=== PATIENT | male | born 1930 | race Caucasian/White ===

== ENCOUNTER 2019-06-07 16:11 | Inpatient (IN) | payer MEDICARE, BC ==
[2019-06-07] MEDS ORDERED: traMADol HCl 50 MG TAB PO PRN (18:48)
[2019-06-07] MEDS: Ascorbic Acid 500 mg Chewable Tablet PO SCH (20:31)
[2019-06-07] MEDS: Tamsulosin HCl 0.4 MG CAP PO SCH (20:31)
[2019-06-07] MEDS: Aspirin 81 mg Enteric Coated Tablet PO SCH (20:32)
[2019-06-07] MEDS: Gabapentin 100 MG CAP PO SCH (20:32)
[2019-06-07] MEDS: Senokot S 8.6-50 MG TAB PO SCH (20:33)
[2019-06-07] MEDS: Midodrine HCl 5 MG TAB PO SCH (20:36)
[2019-06-07] MEDS: Famotidine 20 MG TAB PO SCH (20:45)
--- NOTE | 2019-06-07 21:16 | HP ---
CHIEF COMPLAINT: Need for rehab. HISTORY OF THE PRESENT ILLNESS: Mr. Whelan is an 89-year-old male, with a past medical history of orthostatic hypotension and bradycardia necessitating the placement of pacemaker earlier this year with Dr. Cavazos who suffered a ground level fall at home resulting in a left intertrochanteric femur fracture. He underwent evaluation in the emergency room and had his pacemaker interrogated that did not show any abnormalities. He underwent a TFN nail to the left intertrochanteric femur fracture with Dr. Messer on June 02, 2019. Postoperatively, he had no complications other than some mild sundowning symptoms. He has been transferred to [facility] for a half-way, physical, and occupational therapy. He previously lived alone with his children close by who would check in on him from time to time. He actually made it to the phone and called his son-in-law on the day of the event. He was previously ambulatory at home with quad cane assist that he at times would forget to use or not use due to pride. 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 It was stated that in the emergency department, he had an episode of hypotension and received hydrocortisone for suspected adrenal insufficiency, which improved his blood pressure. He also had acute blood loss anemia that required 1 unit of packed red blood cells. He, since his procedure, has been tolerating his diet and has had good pain control. He had a bowel movement within the last 48 hours and currently has no complaints. PAST MEDICAL HISTORY: 1. History of bradycardia status post pacemaker placement. 2. Benign prostatic hypertrophy. 3. 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 4. Orthostatic hypotension on midodrine, followed by Dr. Cavazos with Cardiology. PAST SURGICAL HISTORY: 1. Left intertrochanteric femur fracture, TFN nail, June [address] Messer. 2. Procedures for squamous cell carcinoma removal and dual chamber pacemaker, March 2019, and cataract surgery. SOCIAL HISTORY: The patient smokes approximately 2 packs per day for over 70 years, but cut down to half a pack a day approximately 10 years ago. No alcohol or illicit drug use. 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 He is . ALLERGIES: NO KNOWN DRUG ALLERGIES. HOME MEDICATIONS: 1. Flomax 0.4 mg at bedtime. 2. Midodrine 10 mg t.i.d. REVIEW OF SYSTEMS: 10-point review of systems negative except for as per HPI and hard of hearing. PHYSICAL EXAMINATION: VITAL SIGNS: Temperature 98.4, heart rate 103, respirations 18, 96% O2 saturation on room air, blood pressure 126/57. GENERAL: Well-developed, well-nourished male, in no acute distress. Alert and oriented x3 with hearing aids in place, wears corrective lenses. HEENT: Normocephalic, atraumatic. Pupils equal, round, reactive to light and accommodation, extraocular muscles intact. Nares are patent without discharge. Tongue protrudes in the midline. NECK: Supple without lymphadenopathy, thyromegaly, JVD, or bruit. HEART: Irregularly irregular with normal rate. No murmurs, clicks, rubs, or gallops. LUNGS: Clear to auscultation with good air entry bilaterally. No crackles or wheezes. No increased work of breathing. Chest with a pacemaker to the left anterior chest wall. ABDOMEN: Positive bowel sounds in all four quadrants. Soft, nontender, nondistended. No masses, guarding, or rebound tenderness. EXTREMITIES: No cyanosis or clubbing. The right lower extremity is without edema. The left lower extremity has trace edema above the knee with diffuse ecchymosis to the medial thigh extending to the scrotal region with some ecchymosis to the lateral thigh with the incision site with dressing that is clean with just a 3-4 mm circular area of bloody drainage, but otherwise intact. No surrounding erythema. NEUROLOGIC: Cranial nerves 2 through 12 are grossly intact with some weakness to the left hip flexor. LABORATORY DATA: White count 10.3 with 74% neutrophils, 19% lymphocytes, hemoglobin 9, hematocrit 26.2, platelet 225. Chemistry; sodium 137, potassium 4.3, chloride 105, bicarb 28, BUN 23, creatinine 1.01, glucose 132, calcium 9.3, phosphorus 3.2, magnesium 2.1. T-bilirubin 0.5. LFTs are normal. Albumin 3.6. ASSESSMENT AND PLAN: 1. This is an 89-year-old male, with past medical history of symptomatic bradycardia status post pacemaker placement and orthostatic hypotension, who suffered a ground level fall and a left intertrochanteric femur fracture. He will be admitted to our half-way unit for physical and occupational therapy. We will have dressing changes per orthopedist and follow up with Dr. Messer in 14 days. Goal will be to return home with family with outpatient PT and OT. We will continue aspirin b.i.d. for deep venous thrombosis prophylaxis. 2. Orthostatic hypotension. The patient will be continued on his midodrine. 3. Bradycardia, s/p pacemaker. 4. Benign prostatic hypertrophy. The patient will be continued on his tamsulosin. 5. Prophylaxis. We will place the patient on Pepcid and apply sequential compression devices. 6. Code status. I discussed this with family and for now they want to keep him at full resuscitation and we will discuss it further with him over the course of his stay. Job ID: [id number] [facility]
[2019-06-07] MEDS: Acetaminophen 500 MG TAB PO SCH (23:17)
[2019-06-08] MEDS: Ibuprofen 600 MG TAB PO PRN (01:21)
[2019-06-08] MEDS: Acetaminophen 500 MG TAB PO SCH ×4 (05:03→23:01)
[2019-06-08] MEDS: Ascorbic Acid 500 mg Chewable Tablet PO SCH ×2 (09:09→21:35)
[2019-06-08] MEDS: Ferrous Sulfate 325 MG TAB PO SCH ×2 (09:09→18:25)
[2019-06-08] MEDS: Famotidine 20 MG TAB PO SCH ×2 (09:09→21:39)
[2019-06-08] MEDS: Aspirin 81 mg Enteric Coated Tablet PO SCH ×2 (09:09→21:39)
[2019-06-08] MEDS: Gabapentin 100 MG CAP PO SCH ×2 (09:09→16:09)
[2019-06-08] MEDS: Senokot S 8.6-50 MG TAB PO SCH ×2 (09:12→21:39)
[2019-06-08] MEDS: Polyethylene Glycol 3350 17 GM Packet PO SCH (09:12)
[2019-06-08] MEDS: Midodrine HCl 5 MG TAB PO SCH ×3 (09:14→21:39)
[2019-06-08] MEDS: Tamsulosin HCl 0.4 MG CAP PO SCH (21:39)
[2019-06-09] MEDS: Acetaminophen 500 MG TAB PO SCH ×4 (06:08→23:28)
[2019-06-09] MEDS: Ferrous Sulfate 325 MG TAB PO SCH ×2 (09:10→16:15)
[2019-06-09] MEDS: Ascorbic Acid 500 mg Chewable Tablet PO SCH ×2 (09:10→21:20)
[2019-06-09] MEDS: Famotidine 20 MG TAB PO SCH ×2 (09:11→21:20)
[2019-06-09] MEDS: Aspirin 81 mg Enteric Coated Tablet PO SCH ×2 (09:11→21:20)
[2019-06-09] MEDS: Midodrine HCl 5 MG TAB PO SCH ×3 (09:17→21:20)
[2019-06-09] MEDS: Senokot S 8.6-50 MG TAB PO SCH ×3 (09:18→21:20)
[2019-06-09] MEDS: Polyethylene Glycol 3350 17 GM Packet PO SCH ×2 (09:19→10:00)
[2019-06-09] MEDS: Tamsulosin HCl 0.4 MG CAP PO SCH (21:20)
[2019-06-10] MEDS: Acetaminophen 500 MG TAB PO SCH ×3 (05:30→18:06)
[2019-06-10] MEDS: Midodrine HCl 5 MG TAB PO SCH ×3 (08:15→20:55)
[2019-06-10] MEDS: Ascorbic Acid 500 mg Chewable Tablet PO SCH ×2 (08:15→20:55)
[2019-06-10] MEDS: Ferrous Sulfate 325 MG TAB PO SCH ×2 (08:15→18:06)
[2019-06-10] MEDS: Senokot S 8.6-50 MG TAB PO SCH ×2 (08:15→20:54)
[2019-06-10] MEDS: Aspirin 81 mg Enteric Coated Tablet PO SCH ×2 (08:15→20:54)
[2019-06-10] MEDS: Ibuprofen 600 MG TAB PO PRN (08:15)
[2019-06-10] MEDS: Famotidine 20 MG TAB PO SCH ×2 (08:15→20:54)
[2019-06-10] MEDS: Polyethylene Glycol 3350 17 GM Packet PO SCH (08:16)
[2019-06-10] MEDS: Mirtazapine 15 MG TAB PO SCH (20:55)
[2019-06-10] MEDS: Tamsulosin HCl 0.4 MG CAP PO SCH (20:55)
[2019-06-11] MEDS: Acetaminophen 500 MG TAB PO SCH ×5 (00:04→23:17)
[2019-06-11] MEDS: Polyethylene Glycol 3350 17 GM Packet PO SCH (08:22)
[2019-06-11] MEDS: Senokot S 8.6-50 MG TAB PO SCH ×2 (08:23→20:46)
[2019-06-11] MEDS: Ferrous Sulfate 325 MG TAB PO SCH ×2 (08:23→17:51)
[2019-06-11] MEDS: Famotidine 20 MG TAB PO SCH ×2 (08:23→20:47)
[2019-06-11] MEDS: Ibuprofen 600 MG TAB PO PRN ×2 (08:23→20:48)
[2019-06-11] MEDS: Midodrine HCl 5 MG TAB PO SCH ×3 (08:23→20:46)
[2019-06-11] MEDS: Aspirin 81 mg Enteric Coated Tablet PO SCH ×2 (08:23→20:47)
[2019-06-11] MEDS: Ascorbic Acid 500 mg Chewable Tablet PO SCH ×2 (08:23→20:47)
[2019-06-11] MEDS: Mirtazapine 15 MG TAB PO SCH (20:47)
[2019-06-11] MEDS: Tamsulosin HCl 0.4 MG CAP PO SCH (20:47)
[2019-06-12 04:36] LABS: Anion Gap 13 mmol/L (10-20); BUN (Urea Nitrogen) 20 mg/dL (8.4-25.7); Calc. Creatinine Clearance 59 mL/min (70-130); Calcium 8.6 mg/dL (7.8-10.44); Carbon Dioxide 24 mmol/L (23-31); Chloride 108 mmol/L (98-107); Estimated GFR-MDRD 79; Glucose 91 mg/dL (83-110); Potassium 4.6 mmol/L (3.5-5.1); Sodium 140 mmol/L (136-145)
[2019-06-12 04:52] LABS: #Basophils 0.1 thou/uL (0.0-0.2); #Eosinphils 0.2 thou/uL (0.0-0.7); #Lymphocytes 1.5 thou/uL (1.20-3.40); #Monocytes 0.8 thou/uL (0.11-0.59); #Neutrophils 5.9 thou/uL (1.40-6.50); %Basophils 0.7 % (0.0-1.0); %Eosinophils 2.8 % (0.0-10.0); %Neutrophils 69.6 % (42.0-75.0); Hemoglobin 9.2 g/dL (14.0-18.0); Mean Corpuscular HGB CONC 32.7 g/dL (32.0-36.0); Mean Corpuscular Hemoglobin 33.5 pg (27.0-31.0); Mean Platelet Volume 6.3 fL (7.4-10.4); Platelet Count 315 thou/uL (130-400); RBC Distribution Width 17.6 % (11.5-14.5); Red Blood Cell (RBC) Count 2.74 mill/uL (4.70-6.10); White Blood Cell (WBC) Count 8.5 thou/uL (4.8-10.8)
[2019-06-12] MEDS: Acetaminophen 500 MG TAB PO SCH ×4 (06:05→23:37)
[2019-06-12] MEDS: Polyethylene Glycol 3350 17 GM Packet PO SCH (08:54)
[2019-06-12] MEDS: Famotidine 20 MG TAB PO SCH ×2 (08:55→20:25)
[2019-06-12] MEDS: Ibuprofen 600 MG TAB PO PRN ×2 (08:55→20:26)
[2019-06-12] MEDS: Midodrine HCl 5 MG TAB PO SCH ×3 (08:55→20:25)
[2019-06-12] MEDS: Aspirin 81 mg Enteric Coated Tablet PO SCH ×2 (08:55→20:26)
[2019-06-12] MEDS: Senokot S 8.6-50 MG TAB PO SCH ×2 (08:55→21:22)
[2019-06-12] MEDS: Ferrous Sulfate 325 MG TAB PO SCH ×2 (08:55→17:10)
[2019-06-12] MEDS: Ascorbic Acid 500 mg Chewable Tablet PO SCH ×2 (08:55→20:26)
[2019-06-12] MEDS: Tamsulosin HCl 0.4 MG CAP PO SCH (20:25)
[2019-06-12] MEDS: Mirtazapine 15 MG TAB PO SCH (20:26)
[2019-06-13] MEDS: Acetaminophen 500 MG TAB PO SCH ×3 (06:26→18:00)
[2019-06-13] MEDS: Midodrine HCl 5 MG TAB PO SCH ×3 (08:23→21:41)
[2019-06-13] MEDS: Senokot S 8.6-50 MG TAB PO SCH ×2 (08:23→21:41)
[2019-06-13] MEDS: Polyethylene Glycol 3350 17 GM Packet PO SCH (08:23)
[2019-06-13] MEDS: Aspirin 81 mg Enteric Coated Tablet PO SCH ×2 (08:24→21:40)
[2019-06-13] MEDS: Famotidine 20 MG TAB PO SCH ×2 (08:24→21:41)
[2019-06-13] MEDS: Ibuprofen 600 MG TAB PO PRN ×2 (08:24→21:41)
[2019-06-13] MEDS: Ascorbic Acid 500 mg Chewable Tablet PO SCH ×2 (08:24→21:41)
[2019-06-13] MEDS: Ferrous Sulfate 325 MG TAB PO SCH ×2 (08:24→18:00)
[2019-06-13] MEDS: Tamsulosin HCl 0.4 MG CAP PO SCH (21:40)
[2019-06-13] MEDS: Mirtazapine 15 MG TAB PO SCH (21:41)
[2019-06-14] MEDS: Acetaminophen 500 MG TAB PO SCH ×4 (00:32→17:42)
[2019-06-14] MEDS: Senokot S 8.6-50 MG TAB PO SCH ×2 (08:49→20:45)
[2019-06-14] MEDS: Midodrine HCl 5 MG TAB PO SCH ×3 (08:50→20:46)
[2019-06-14] MEDS: Ferrous Sulfate 325 MG TAB PO SCH ×2 (08:50→17:42)
[2019-06-14] MEDS: Ascorbic Acid 500 mg Chewable Tablet PO SCH ×2 (08:50→20:45)
[2019-06-14] MEDS: Famotidine 20 MG TAB PO SCH ×2 (08:53→20:45)
[2019-06-14] MEDS: Aspirin 81 mg Enteric Coated Tablet PO SCH ×2 (08:53→20:45)
[2019-06-14] MEDS: Polyethylene Glycol 3350 17 GM Packet PO SCH (08:59)
[2019-06-14] MEDS: Ibuprofen 600 MG TAB PO PRN (20:45)
[2019-06-14] MEDS: Tamsulosin HCl 0.4 MG CAP PO SCH (20:46)
[2019-06-14] MEDS: Mirtazapine 15 MG TAB PO SCH (20:46)
[2019-06-15] MEDS: Acetaminophen 500 MG TAB PO SCH ×4 (02:27→17:47)
[2019-06-15] MEDS: Senokot S 8.6-50 MG TAB PO SCH ×2 (08:42→20:58)
[2019-06-15] MEDS: Polyethylene Glycol 3350 17 GM Packet PO SCH (08:42)
[2019-06-15] MEDS: Midodrine HCl 5 MG TAB PO SCH ×3 (08:43→20:58)
[2019-06-15] MEDS: Aspirin 81 mg Enteric Coated Tablet PO SCH ×2 (08:43→20:59)
[2019-06-15] MEDS: Ferrous Sulfate 325 MG TAB PO SCH ×2 (08:43→17:47)
[2019-06-15] MEDS: Famotidine 20 MG TAB PO SCH ×2 (08:43→20:59)
[2019-06-15] MEDS: Ascorbic Acid 500 mg Chewable Tablet PO SCH ×2 (08:43→20:59)
[2019-06-15] MEDS: Tamsulosin HCl 0.4 MG CAP PO SCH (20:59)
[2019-06-16] MEDS: Acetaminophen 500 MG TAB PO SCH ×5 (00:14→17:21)
[2019-06-16] MEDS: Senokot S 8.6-50 MG TAB PO SCH ×2 (08:30→20:40)
[2019-06-16] MEDS: Ferrous Sulfate 325 MG TAB PO SCH ×2 (08:30→15:28)
[2019-06-16] MEDS: Ascorbic Acid 500 mg Chewable Tablet PO SCH ×2 (08:31→20:40)
[2019-06-16] MEDS: Polyethylene Glycol 3350 17 GM Packet PO SCH (08:31)
[2019-06-16] MEDS: Aspirin 81 mg Enteric Coated Tablet PO SCH ×2 (08:31→20:39)
[2019-06-16] MEDS: Famotidine 20 MG TAB PO SCH ×2 (08:31→20:39)
[2019-06-16] MEDS: Midodrine HCl 5 MG TAB PO SCH ×3 (08:31→20:39)
[2019-06-16] MEDS: Tamsulosin HCl 0.4 MG CAP PO SCH (20:40)
[2019-06-17] MEDS: Acetaminophen 500 MG TAB PO SCH ×4 (00:21→17:35)
[2019-06-17] MEDS: Polyethylene Glycol 3350 17 GM Packet PO SCH (09:35)
[2019-06-17] MEDS: Midodrine HCl 5 MG TAB PO SCH ×3 (09:35→20:08)
[2019-06-17] MEDS: Senokot S 8.6-50 MG TAB PO SCH ×2 (09:35→20:08)
[2019-06-17] MEDS: Ascorbic Acid 500 mg Chewable Tablet PO SCH ×2 (09:36→20:08)
[2019-06-17] MEDS: Famotidine 20 MG TAB PO SCH ×2 (09:36→20:09)
[2019-06-17] MEDS: Aspirin 81 mg Enteric Coated Tablet PO SCH ×2 (09:36→20:08)
[2019-06-17] MEDS: Ferrous Sulfate 325 MG TAB PO SCH ×2 (09:36→17:35)
[2019-06-17] MEDS: Tamsulosin HCl 0.4 MG CAP PO SCH (20:08)
[2019-06-18] MEDS: Acetaminophen 500 MG TAB PO SCH ×5 (00:20→23:43)
[2019-06-18] MEDS: Ascorbic Acid 500 mg Chewable Tablet PO SCH ×2 (08:56→20:59)
[2019-06-18] MEDS: Polyethylene Glycol 3350 17 GM Packet PO SCH (08:56)
[2019-06-18] MEDS: Midodrine HCl 5 MG TAB PO SCH ×3 (08:56→20:58)
[2019-06-18] MEDS: Famotidine 20 MG TAB PO SCH ×2 (08:57→20:59)
[2019-06-18] MEDS: Aspirin 81 mg Enteric Coated Tablet PO SCH ×2 (08:57→20:57)
[2019-06-18] MEDS: Senokot S 8.6-50 MG TAB PO SCH ×2 (08:57→20:59)
[2019-06-18] MEDS: Ferrous Sulfate 325 MG TAB PO SCH ×2 (08:57→17:33)
[2019-06-18] MEDS: Tamsulosin HCl 0.4 MG CAP PO SCH (20:57)
[2019-06-19] MEDS: Acetaminophen 500 MG TAB PO SCH ×3 (05:49→17:24)
[2019-06-19] MEDS: Ascorbic Acid 500 mg Chewable Tablet PO SCH ×2 (08:16→20:55)
[2019-06-19] MEDS: Famotidine 20 MG TAB PO SCH ×2 (08:16→20:55)
[2019-06-19] MEDS: Midodrine HCl 5 MG TAB PO SCH ×3 (08:16→20:54)
[2019-06-19] MEDS: Aspirin 81 mg Enteric Coated Tablet PO SCH ×2 (08:18→20:55)
[2019-06-19] MEDS: Ferrous Sulfate 325 MG TAB PO SCH ×2 (08:18→17:24)
[2019-06-19] MEDS: Polyethylene Glycol 3350 17 GM Packet PO SCH (08:19)
[2019-06-19] MEDS: Senokot S 8.6-50 MG TAB PO SCH ×2 (08:19→20:55)
[2019-06-19] MEDS: Ibuprofen 600 MG TAB PO PRN (20:54)
[2019-06-19] MEDS: Tamsulosin HCl 0.4 MG CAP PO SCH (20:55)
[2019-06-20] MEDS: Acetaminophen 500 MG TAB PO SCH ×4 (00:27→17:12)
[2019-06-20] MEDS: Famotidine 20 MG TAB PO SCH ×2 (08:03→21:21)
[2019-06-20] MEDS: Aspirin 81 mg Enteric Coated Tablet PO SCH ×2 (08:03→21:20)
[2019-06-20] MEDS: Polyethylene Glycol 3350 17 GM Packet PO SCH (08:03)
[2019-06-20] MEDS: Ferrous Sulfate 325 MG TAB PO SCH ×2 (08:03→17:12)
[2019-06-20] MEDS: Ascorbic Acid 500 mg Chewable Tablet PO SCH ×2 (08:03→21:21)
[2019-06-20] MEDS: Midodrine HCl 5 MG TAB PO SCH ×3 (08:03→21:20)
[2019-06-20] MEDS: Senokot S 8.6-50 MG TAB PO SCH ×2 (08:03→21:22)
[2019-06-20] MEDS: Tamsulosin HCl 0.4 MG CAP PO SCH (21:20)
[2019-06-21] MEDS: Acetaminophen 500 MG TAB PO SCH ×5 (01:28→23:57)
[2019-06-21] MEDS: Senokot S 8.6-50 MG TAB PO SCH ×2 (08:48→20:40)
[2019-06-21] MEDS: Midodrine HCl 5 MG TAB PO SCH ×3 (08:49→20:40)
[2019-06-21] MEDS: Aspirin 81 mg Enteric Coated Tablet PO SCH ×2 (08:49→20:40)
[2019-06-21] MEDS: Polyethylene Glycol 3350 17 GM Packet PO SCH (08:49)
[2019-06-21] MEDS: Ferrous Sulfate 325 MG TAB PO SCH ×2 (08:49→17:48)
[2019-06-21] MEDS: Famotidine 20 MG TAB PO SCH ×2 (08:49→20:40)
[2019-06-21] MEDS: Ascorbic Acid 500 mg Chewable Tablet PO SCH ×2 (08:50→20:40)
[2019-06-21] MEDS: Tamsulosin HCl 0.4 MG CAP PO SCH (20:40)
[2019-06-22] MEDS: Acetaminophen 500 MG TAB PO SCH ×4 (05:04→23:17)
[2019-06-22] MEDS: Aspirin 81 mg Enteric Coated Tablet PO SCH ×2 (08:50→20:19)
[2019-06-22] MEDS: Midodrine HCl 5 MG TAB PO SCH ×3 (08:50→20:19)
[2019-06-22] MEDS: Senokot S 8.6-50 MG TAB PO SCH ×2 (08:50→20:18)
[2019-06-22] MEDS: Ferrous Sulfate 325 MG TAB PO SCH ×2 (08:51→17:14)
[2019-06-22] MEDS: Famotidine 20 MG TAB PO SCH ×2 (08:51→20:19)
[2019-06-22] MEDS: Ascorbic Acid 500 mg Chewable Tablet PO SCH ×2 (08:51→20:19)
[2019-06-22] MEDS: Polyethylene Glycol 3350 17 GM Packet PO SCH (08:51)
[2019-06-22] MEDS: Tamsulosin HCl 0.4 MG CAP PO SCH (20:19)
[2019-06-23] MEDS: Acetaminophen 500 MG TAB PO SCH ×3 (05:18→17:57)
[2019-06-23] MEDS: Senokot S 8.6-50 MG TAB PO SCH ×2 (08:31→20:36)
[2019-06-23] MEDS: Midodrine HCl 5 MG TAB PO SCH ×3 (08:31→20:35)
[2019-06-23] MEDS: Ascorbic Acid 500 mg Chewable Tablet PO SCH ×2 (08:32→20:36)
[2019-06-23] MEDS: Polyethylene Glycol 3350 17 GM Packet PO SCH (08:32)
[2019-06-23] MEDS: Famotidine 20 MG TAB PO SCH ×2 (08:32→20:35)
[2019-06-23] MEDS: Aspirin 81 mg Enteric Coated Tablet PO SCH ×2 (08:32→20:35)
[2019-06-23] MEDS: Ferrous Sulfate 325 MG TAB PO SCH ×2 (08:32→17:57)
[2019-06-23] MEDS: Ibuprofen 600 MG TAB PO PRN (20:35)
[2019-06-23] MEDS: Tamsulosin HCl 0.4 MG CAP PO SCH (20:36)
[2019-06-24] MEDS: Acetaminophen 500 MG TAB PO SCH ×4 (00:08→17:33)
[2019-06-24] MEDS: Polyethylene Glycol 3350 17 GM Packet PO SCH (08:28)
[2019-06-24] MEDS: Famotidine 20 MG TAB PO SCH ×2 (08:29→20:55)
[2019-06-24] MEDS: Ferrous Sulfate 325 MG TAB PO SCH ×2 (08:29→17:33)
[2019-06-24] MEDS: Senokot S 8.6-50 MG TAB PO SCH ×2 (08:29→20:56)
[2019-06-24] MEDS: Midodrine HCl 5 MG TAB PO SCH ×3 (08:30→20:55)
[2019-06-24] MEDS: Ascorbic Acid 500 mg Chewable Tablet PO SCH ×2 (08:30→20:55)
[2019-06-24] MEDS: Aspirin 81 mg Enteric Coated Tablet PO SCH ×2 (08:30→20:55)
[2019-06-24] MEDS: Tamsulosin HCl 0.4 MG CAP PO SCH (20:55)
[2019-06-24] MEDS: Ibuprofen 600 MG TAB PO PRN (20:55)
[2019-06-25] MEDS: Acetaminophen 500 MG TAB PO SCH ×5 (00:32→23:35)
[2019-06-25] MEDS: Midodrine HCl 5 MG TAB PO SCH ×3 (08:51→21:34)
[2019-06-25] MEDS: Famotidine 20 MG TAB PO SCH ×2 (08:51→21:35)
[2019-06-25] MEDS: Senokot S 8.6-50 MG TAB PO SCH ×2 (08:52→21:35)
[2019-06-25] MEDS: Polyethylene Glycol 3350 17 GM Packet PO SCH (08:52)
[2019-06-25] MEDS: Ferrous Sulfate 325 MG TAB PO SCH ×2 (08:52→17:35)
[2019-06-25] MEDS: Ascorbic Acid 500 mg Chewable Tablet PO SCH ×2 (08:52→21:35)
[2019-06-25] MEDS: Aspirin 81 mg Enteric Coated Tablet PO SCH ×2 (08:52→21:34)
[2019-06-25] MEDS: Tamsulosin HCl 0.4 MG CAP PO SCH (21:34)
[2019-06-25] MEDS: Ibuprofen 600 MG TAB PO PRN (21:34)
[2019-06-26 04:29] LABS: Anion Gap 12 mmol/L (10-20); BUN (Urea Nitrogen) 12 mg/dL (8.4-25.7); Calc. Creatinine Clearance 0 mL/min (70-130); Calcium 8.7 mg/dL (7.8-10.44); Carbon Dioxide 23 mmol/L (23-31); Chloride 103 mmol/L (98-107); Estimated GFR-MDRD Greater than 90; Glucose 96 mg/dL (83-110); Potassium 3.9 mmol/L (3.5-5.1); Sodium 134 mmol/L (136-145)
[2019-06-26 05:00] LABS: Thyroid Stimulating Hormone 1.9149 uIU/mL (0.35-4.94)
[2019-06-26] MEDS: Acetaminophen 500 MG TAB PO SCH ×5 (05:22→22:59)
[2019-06-26 05:40] LABS: #Basophils 0.1 thou/uL (0.0-0.2); #Eosinphils 0.1 thou/uL (0.0-0.7); #Monocytes 0.6 thou/uL (0.11-0.59); #Neutrophils 3.9 thou/uL (1.40-6.50); %Basophils 1.1 % (0.0-1.0); %Eosinophils 2.1 % (0.0-10.0); %Lymphocytes 17.2 % (21.0-51.0); %Monocytes 10.7 % (0.0-10.0); %Neutrophils 68.9 % (42.0-75.0); Anisocytosis SLIGHT = 6-15 cells (100X) (0-5/hpf); Hemoglobin 9.6 g/dL (14.0-18.0); MDiff Complete? YES; Macrocytosis SLIGHT = 6-15 cells (100X) (0-5/hpf); Mean Corpuscular HGB CONC 31.8 g/dL (32.0-36.0); Mean Corpuscular Hemoglobin 33.3 pg (27.0-31.0); Mean Platelet Volume 6.8 fL (7.4-10.4); Ovalocytes SLIGHT = 2-5 cells (100X) (0-1/hpf); Platelet Count 211 thou/uL (130-400); Platelet Morphology Comment Appears Adequate; RBC Distribution Width 15.6 % (11.5-14.5); Red Blood Cell (RBC) Count 2.88 mill/uL (4.70-6.10); Rouleaux Formation SLIGHT = 1-5 cells (100X) (None Seen); White Blood Cell (WBC) Count 5.7 thou/uL (4.8-10.8)
[2019-06-26] MEDS: Midodrine HCl 5 MG TAB PO SCH ×3 (08:15→22:56)
[2019-06-26] MEDS: Polyethylene Glycol 3350 17 GM Packet PO SCH (08:16)
[2019-06-26] MEDS: Aspirin 81 mg Enteric Coated Tablet PO SCH ×2 (08:16→22:56)
[2019-06-26] MEDS: Senokot S 8.6-50 MG TAB PO SCH ×2 (08:16→22:57)
[2019-06-26] MEDS: Ascorbic Acid 500 mg Chewable Tablet PO SCH ×2 (08:16→22:57)
[2019-06-26] MEDS: Ferrous Sulfate 325 MG TAB PO SCH ×2 (08:16→17:57)
[2019-06-26] MEDS: Famotidine 20 MG TAB PO SCH ×2 (08:16→22:56)
[2019-06-26] MEDS ORDERED: Furosemide 40 MG TAB PO SCH (15:15)
--- NOTE | 2019-06-26 17:29 | RAD ---
CHEST TWO VIEWS: Date: 06-26-2019 Comparison: 06-01-19 FINDINGS: Small bilateral pleural effusions have occurred in the interval. There is a little haziness in the ty ng bases, but it seems to mostly referable to the fluid and perhaps some minimal atelectasis. No sanjay r lobar infiltrate was seen. The lungs are hyperexpanded as usual. The cardiac size is stable. There is no congestion of the upper lobe vessels to speak of. The cardiac pacer remains in place. Arteriosc lerotic changes seen in the aorta. IMPRESSION: Interval development of small bilateral pleural effusions. POS: HOME
[2019-06-26 17:41] LABS: Bilirubin Negative (Negative); Blood, Urine Negative (Negative); Clarity Clear (Clear); Glucose, Urine (Dipstick) Negative (Negative); Leukocyte Negative (Negative); Nitrite Negative (Negative); Protein, Urine (Dipstick) Negative (Neg-Trace); Urobilinogen 0.2 mg/dL (Less than 2)
[2019-06-26 17:42] LABS: Urine Culture Reflex No No
[2019-06-26 17:48] LABS: Bacteria/HPF None Seen HPF (None Seen); Broad Cast None Seen LPF (None Seen); Calcium Oxalate Crystals None Seen HPF (None Seen); Cellular Cast None Seen LPF (None Seen); Crystals/HPF None Seen HPF (Negative); Epithelial Cast None Seen LPF (None Seen); Fatty Cast None Seen LPF (None Seen); Other Casts None Seen LPF (None Seen); Other Casts/LPF None Seen LPF (0-3 Hyaline); Oval Fat Bodies/HPF None Seen HPF (None Seen); RBC/HPF 0-3 HPF (0-3); Red Blood Cell Cast None Seen LPF (None Seen); Renal Epithelial None Seen HPF (None Seen); Sperm/HPF None Seen HPF (None Seen); Squamous Epithelial None Seen HPF (0-3); Transitional Epithelial None Seen HPF (None Seen); Trichomonas/HPF None Seen HPF (None Seen); Triple Phosphate Crystal None Seen HPF (None Seen); Unclassified Crystals None Seen HPF (None Seen); WBC/HPF None Seen HPF (0-3); Waxy Cast None Seen LPF (None Seen); White Blood Cell Cast None Seen LPF (None Seen); Yeast-Budding None Seen HPF (None Seen); Yeast-Hyphae None Seen HPF (None Seen)
[2019-06-26] MEDS: Tamsulosin HCl 0.4 MG CAP PO SCH (22:56)
[2019-06-27] MEDS: Acetaminophen 500 MG TAB PO SCH ×2 (06:44→18:10)
[2019-06-27] MEDS: Senokot S 8.6-50 MG TAB PO SCH ×2 (09:20→21:57)
[2019-06-27] MEDS: Midodrine HCl 5 MG TAB PO SCH ×3 (09:20→21:58)
[2019-06-27] MEDS: Famotidine 20 MG TAB PO SCH ×2 (09:21→21:57)
[2019-06-27] MEDS: Ferrous Sulfate 325 MG TAB PO SCH ×2 (09:21→18:00)
[2019-06-27] MEDS: Aspirin 81 mg Enteric Coated Tablet PO SCH ×2 (10:20→21:57)
[2019-06-27] MEDS: Ascorbic Acid 500 mg Chewable Tablet PO SCH ×2 (10:21→21:58)
[2019-06-27] MEDS: Polyethylene Glycol 3350 17 GM Packet PO SCH (10:21)
--- NOTE | 2019-06-27 19:26 | ULT ---
LEFT LOWER EXTREMITY VENOUS ULTRASOUND: 06/27/19 Color duplex Doppler ultrasonography of the left lower extremity was performed. No echogenic clot was seen. All deep veins were freely compressible from groin to ankle. There was normal Doppler response to augmentation maneuvers. IMPRESSION: No evidence of DVT. POS: HOME
[2019-06-27] MEDS: Tamsulosin HCl 0.4 MG CAP PO SCH (21:57)
[2019-06-28] MEDS: Acetaminophen 500 MG TAB PO SCH ×4 (00:18→17:50)
[2019-06-28] MEDS: Ferrous Sulfate 325 MG TAB PO SCH ×2 (08:45→17:50)
[2019-06-28] MEDS: Midodrine HCl 5 MG TAB PO SCH ×3 (09:02→21:15)
[2019-06-28] MEDS: Aspirin 81 mg Enteric Coated Tablet PO SCH ×2 (09:03→21:14)
[2019-06-28] MEDS: Ascorbic Acid 500 mg Chewable Tablet PO SCH ×2 (09:03→21:15)
[2019-06-28] MEDS: Senokot S 8.6-50 MG TAB PO SCH ×2 (09:05→21:15)
[2019-06-28] MEDS: Polyethylene Glycol 3350 17 GM Packet PO SCH (09:06)
[2019-06-28] MEDS: Famotidine 20 MG TAB PO SCH ×2 (09:07→21:14)
[2019-06-28 14:45] VITALS: BMI 20.7
[2019-06-28] MEDS: Tamsulosin HCl 0.4 MG CAP PO SCH (21:15)
[2019-06-29] MEDS: Acetaminophen 500 MG TAB PO SCH ×4 (01:01→18:03)
[2019-06-29] MEDS: Ferrous Sulfate 325 MG TAB PO SCH ×2 (08:41→16:32)
[2019-06-29] MEDS: Aspirin 81 mg Enteric Coated Tablet PO SCH ×2 (08:41→20:37)
[2019-06-29] MEDS: Senokot S 8.6-50 MG TAB PO SCH ×2 (08:41→20:36)
[2019-06-29] MEDS: Midodrine HCl 5 MG TAB PO SCH ×3 (08:42→20:36)
[2019-06-29] MEDS: Famotidine 20 MG TAB PO SCH ×2 (08:42→20:36)
[2019-06-29] MEDS: Ascorbic Acid 500 mg Chewable Tablet PO SCH ×2 (08:42→20:37)
[2019-06-29] MEDS: Polyethylene Glycol 3350 17 GM Packet PO SCH (08:42)
[2019-06-29] MEDS: Tamsulosin HCl 0.4 MG CAP PO SCH (20:37)
[2019-06-30] MEDS: Acetaminophen 500 MG TAB PO SCH ×4 (01:07→18:26)
[2019-06-30] MEDS: Ferrous Sulfate 325 MG TAB PO SCH ×2 (09:00→17:26)
[2019-06-30] MEDS: Senokot S 8.6-50 MG TAB PO SCH ×2 (09:00→20:40)
[2019-06-30] MEDS: Midodrine HCl 5 MG TAB PO SCH ×3 (09:10→20:39)
[2019-06-30] MEDS: Ascorbic Acid 500 mg Chewable Tablet PO SCH ×2 (09:11→20:39)
[2019-06-30] MEDS: Polyethylene Glycol 3350 17 GM Packet PO SCH (09:33)
[2019-06-30] MEDS: Ibuprofen 600 MG TAB PO PRN (10:08)
[2019-06-30] MEDS: Aspirin 81 mg Enteric Coated Tablet PO SCH ×2 (10:11→20:39)
[2019-06-30] MEDS: Famotidine 20 MG TAB PO SCH ×2 (10:12→20:39)
[2019-06-30] MEDS: Tamsulosin HCl 0.4 MG CAP PO SCH (20:39)
[2019-07-01] MEDS: Acetaminophen 500 MG TAB PO SCH ×4 (00:03→18:01)
[2019-07-01] MEDS: Senokot S 8.6-50 MG TAB PO SCH ×2 (09:35→20:49)
[2019-07-01] MEDS: Ascorbic Acid 500 mg Chewable Tablet PO SCH ×2 (09:35→20:48)
[2019-07-01] MEDS: Aspirin 81 mg Enteric Coated Tablet PO SCH ×2 (09:36→20:48)
[2019-07-01] MEDS: Famotidine 20 MG TAB PO SCH ×2 (09:36→20:48)
[2019-07-01] MEDS: Midodrine HCl 5 MG TAB PO SCH ×3 (09:36→20:48)
[2019-07-01] MEDS: Ferrous Sulfate 325 MG TAB PO SCH ×2 (09:36→18:01)
[2019-07-01] MEDS: Polyethylene Glycol 3350 17 GM Packet PO SCH (09:36)
[2019-07-01] MEDS: Tamsulosin HCl 0.4 MG CAP PO SCH (20:48)
[2019-07-02] MEDS: Acetaminophen 500 MG TAB PO SCH ×5 (01:46→23:14)
[2019-07-02] MEDS: Senokot S 8.6-50 MG TAB PO SCH ×2 (09:17→20:33)
[2019-07-02] MEDS: Polyethylene Glycol 3350 17 GM Packet PO SCH (09:17)
[2019-07-02] MEDS: Aspirin 81 mg Enteric Coated Tablet PO SCH ×2 (09:18→20:34)
[2019-07-02] MEDS: Midodrine HCl 5 MG TAB PO SCH ×3 (09:18→20:34)
[2019-07-02] MEDS: Ascorbic Acid 500 mg Chewable Tablet PO SCH ×2 (09:18→20:33)
[2019-07-02] MEDS: Ferrous Sulfate 325 MG TAB PO SCH ×2 (09:18→17:45)
[2019-07-02] MEDS: Famotidine 20 MG TAB PO SCH ×2 (09:18→20:33)
[2019-07-02] MEDS: Tamsulosin HCl 0.4 MG CAP PO SCH (20:34)
[2019-07-03] MEDS: Acetaminophen 500 MG TAB PO SCH ×3 (05:26→17:48)
[2019-07-03] MEDS: Ferrous Sulfate 325 MG TAB PO SCH ×2 (08:44→17:48)
[2019-07-03] MEDS: Midodrine HCl 5 MG TAB PO SCH ×3 (08:44→21:21)
[2019-07-03] MEDS: Famotidine 20 MG TAB PO SCH ×2 (08:44→21:21)
[2019-07-03] MEDS: Aspirin 81 mg Enteric Coated Tablet PO SCH ×2 (08:44→21:21)
[2019-07-03] MEDS: Ascorbic Acid 500 mg Chewable Tablet PO SCH ×2 (08:45→21:21)
[2019-07-03] MEDS: Polyethylene Glycol 3350 17 GM Packet PO SCH (08:46)
[2019-07-03] MEDS: Senokot S 8.6-50 MG TAB PO SCH ×2 (12:41→21:22)
[2019-07-03] MEDS: Tamsulosin HCl 0.4 MG CAP PO SCH (21:21)
[2019-07-04] MEDS: Acetaminophen 500 MG TAB PO SCH ×4 (03:15→16:16)
[2019-07-04] MEDS: Polyethylene Glycol 3350 17 GM Packet PO SCH (08:21)
[2019-07-04] MEDS: Midodrine HCl 5 MG TAB PO SCH ×2 (08:21→14:39)
[2019-07-04] MEDS: Famotidine 20 MG TAB PO SCH (08:22)
[2019-07-04] MEDS: Ascorbic Acid 500 mg Chewable Tablet PO SCH (08:22)
[2019-07-04] MEDS: Senokot S 8.6-50 MG TAB PO SCH ×2 (08:22→09:19)
[2019-07-04] MEDS: Aspirin 81 mg Enteric Coated Tablet PO SCH (08:22)
[2019-07-04] MEDS: Ferrous Sulfate 325 MG TAB PO SCH ×2 (08:22→16:16)
[2019-07-04] MEDS: Ibuprofen 600 MG TAB PO PRN (09:20)
--- NOTE | 2019-07-04 16:51 | RAD ---
LEFT HIP THREE VIEWS: 07/04/19 The patient has had a recent ORIF of a femoral neck fracture. Comparison is made with the 06/02/19 in traoperative films. On today's view, the tip of the compression screw appears to protrude beyond the edge of the femoral head in two different views. There is callus forming around the original fracture site. The lesser tr ochanter is ununited as would be expected. The adjacent pubic ring appears intact. IMPRESSION: Tip of compression screw appears to be superior to the limits of the femoral head. I would recommend reconsulting with the orthopedic surgeon to review and assess if anything else need be done. Code T POS: HOME
[2019-07-04 17:21] VITALS: BP 159/77; TEMP 98.8
--- NOTE | 2019-07-05 03:04 | DIS ---
DATE OF ADMISSION: 06/07/2019 DATE OF DISCHARGE: 07/04/2019 ADMISSION DIAGNOSES: 1. Left intertrochanteric femur fracture, status post open reduction and internal fixation. 2. Ground level fall. 3. Orthostatic hypotension. 4. Symptomatic bradycardia, status post pacemaker placement. 5. Benign prostatic hypertrophy. DISCHARGE DIAGNOSES: 1. Left intertrochanteric femur fracture, status post open reduction and internal fixation. 2. Ground level fall. 3. Orthostatic hypotension. 4. Symptomatic bradycardia, status post pacemaker placement. 5. Benign prostatic hypertrophy. 6. Interruption of the open reduction and internal fixation, status post ground level fall at facility. PROCEDURES: 1. Chest x-ray, June 26, 2019. Interval development of small bilateral pleural effusions. 2. Vascular ultrasound, June 27, left lower extremity. No evidence of DVT. 3. Hip x-ray, date of transfer, July 04 showing tibia compression screw appearing to be superior to the limits of femoral head. PENITENTIARY COURSE: Mr. Whelan is an 89-year-old male, who was admitted on June 07, status post ORIF of the left femur, status post ground level fall with fracture. The patient was assessed and treated with Physical and Occupational Therapy, fall precautions, and was ambulating in the [place] with walker and standby assist. He had a few setbacks during his half-way course. Initially, he had decreased intake and appetite, and mirtazapine was started after discussing benefits vs. risks with family. However, after a couple of days of some weight gain, he was having some lethargy in the morning, so this medication was discontinued at family request. The a.m. lethargy resolved and his appetite improved. On June 26, the patient also had some increased confusion and some testing was performed, which showed bilateral pleural effusions that were small and slightly increased above his baseline, B-type natriuretic peptide at 393, and some ectopic activity per his chest exam. EKG showed sinus rhythm with premature atrial activity. The patient was instructed incentive spirometry and given a dose of lasix. The following day, I obtained a venous Doppler of the left lower extremity due to some distal swelling, which was negative for DVT. The confusion improved and also was partly attributed to tramadol that he had gotten for pain. This was discontinued. Unfortunately, on the morning of July 03, the patient suffered a ground level fall in the bathroom. Initially, he had no complaints of pain and denied pain to staff. However, he apparently voiced left hip pain to a family member this morning, which prompted imaging that showed the x- ray results as above. I called and spoke with Dr. Messer, who recommended transferring the patient over to [facility] to discuss further treatment options. The family has been updated. PHYSICAL EXAMINATION: VITAL SIGNS: The patient was examined at the time of transfer and vital signs were stable with temperature 98.8, pulse 82, respirations 20, O2 saturation 96% on room air. Blood pressure 159/77. GENERAL: Well-developed, thin male, in no acute distress. Awoken easily from sleep. Hard of hearing. Denies pain. CARDIOVASCULAR: Regular rate and rhythm. Normal S1 and S2. Distant heart sounds. No murmurs. LUNGS: Clear to auscultation bilaterally. No crackles or wheezes. ABDOMEN: Positive bowel sounds in all four quadrants. Soft, nontender, nondistended. EXTREMITIES: No cyanosis or clubbing. The patient will be transferred to [facility] under the care of Dr. Messer. CURRENT MEDICATIONS: 1. Acetaminophen 1000 mg p.o. q.6 hours. 2. Ascorbic acid 500 mg p.o. b.i.d. 3. Aspirin 81 mg p.o. b.i.d. 4. Famotidine 20 mg p.o. b.i.d. 5. Ferrous sulfate 325 mg p.o. b.i.d. 6. Ibuprofen 600 mg p.o. q.8 hours p.r.n. 7. Midodrine 10 mg p.o. t.i.d. 8. Polyethylene glycol 17 g p.o. daily. 9. Sennosides docusate two p.o. b.i.d. 10. Tamsulosin 0.4 mg p.o. at bedtime. Job ID: [id number] [facility]
== END 2019-07-04 17:18 | disposition short-term general hospital (02) | DRG 560 ==
LOC: BURMED 16:16
PROVIDERS: ADMIT Family Medicine; ATTEND Family Medicine
DX: Z47.89 Encounter for other orthopedic aftercare (principal); J90 Pleural effusion, not elsewhere classified; F05 Delirium due to known physiological condition; J98.11 Atelectasis; Z95.0 Presence of cardiac pacemaker; N40.0 Benign prostatic hyperplasia without lower urinary tract symptoms; F17.210 Nicotine dependence, cigarettes, uncomplicated; S72.142D Displaced intertrochanteric fracture of left femur, subsequent encounter for closed fracture with routine healing; W18.30XD Fall on same level, unspecified, subsequent encounter; Z79.899 Other long term (current) drug therapy; I95.1 Orthostatic hypotension; Z88.8 Allergy status to other drugs, medicaments and biological substances; R00.1 Bradycardia, unspecified; Z85.828 Personal history of other malignant neoplasm of skin; Z98.49 Cataract extraction status, unspecified eye
CPT/HCPCS: 36415; 71046; 80048; 81001; 82607; 82746; 83880; 84443; 85025